=== PATIENT | female | born 1930 | race Caucasian/White ===

== ENCOUNTER 2018-01-20 14:57 | Outpatient (CLI) | payer MEDICARE ==
--- NOTE | 2018-01-20 15:58 | ULT ---
LEFT LOWER EXTREMITY VENOUS DUPLEX SONOGRAM 01/20/18 HISTORY: Left leg pain and edema. FINDINGS: The left common femoral vein and greater saphenous junction were evaluated along with the femoral, de ep femoral, popliteal, and posterior tibial veins. There is good color and spectral doppler flow, com pression, and augmentation. An overall 1.3 cm slightly complex fluid collection with the popliteal fo ssa likely represents a small Ozuna's cyst. IMPRESSION: No sonographic evidence of DVT left lower extremity. POS: [facility]
== END 2018-01-20 14:58 | disposition home or self-care (01) ==
LOC: SCSULT 14:57
PROVIDERS: ATTEND Family Medicine
DX: R60.9 Edema, unspecified (principal)